=== PATIENT | female | born 1985 | race Two or more races ===

== ENCOUNTER 2022-04-16 22:28 | Emergency (ER) | payer MEDICAID ==
[~2022-04-16] VITALS: Ht 157.5 cm; Wt 72.7 kg
[2022-04-17 01:06] VITALS: BP 142/86
== END 2022-04-17 03:01 | disposition left against medical advice (07) ==
LOC: EMS 22:33
DX: R51.9 Headache, unspecified (principal); M54.2 Cervicalgia; R11.2 Nausea with vomiting, unspecified; H92.01 Otalgia, right ear; Z53.21 Procedure and treatment not carried out due to patient leaving prior to being seen by health care provider